=== PATIENT | male | born 1995 | race Caucasian/White ===

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

== ENCOUNTER 2018-03-10 01:02 | Emergency (ER) | END 2018-03-10 05:13 | disposition home or self-care (01) ==

== ENCOUNTER 2018-07-27 22:10 | Emergency (ER) | payer SELFPAY ==
[~2018-07-27] VITALS: Ht 172.7 cm; Wt 112.8 kg
[~2018-07-27 22:10] MED LIST: RANI150T35 PO; SUCR1TAB56 PO
[2018-07-27 22:15] VITALS: Ht 172.7 cm; Wt 112.8 kg
== END 2018-07-28 03:43 | disposition left against medical advice (07) ==
LOC: FTE 22:10
DX: Z53.21 Procedure and treatment not carried out due to patient leaving prior to being seen by health care provider (principal)